=== PATIENT | female | born 1985 | race Caucasian/White ===

== ENCOUNTER 2016-06-24 10:51 | Day surgery (SDC) | payer OTHER ==
[~2016-06-24] VITALS: Ht 157.5 cm; Wt 77.0 kg
[~2016-06-24 10:51] MED LIST: AMPH20CA5 PO; HYDR-4003 PO; HYDR25TA4 PO; LISI40TA PO; OXYC5TAB72 PO; POLY17PO6 PO; SERT50TA9 PO; Sodium Chloride LOK Flush 10 mL Syringe IV PRN; fentaNYL-PF 50 mCg/mL 2 mL Inj IVPUSH PRN
[2016-06-24 12:17] VITALS: BP 133/89; PULSE 65; RESP 16; O2SAT 99
[2016-06-24] MEDS: 0.9% Sodium Chloride 1,000 ML IV SCH ×2 (12:41→12:53)
--- NOTE | 2016-06-24 13:06 | PCM.ENDCOL ---
Colonoscopy Date of Service: Jun 24, 2016 Physician Steve Cisneros MD Indication for Procedure Diarrhea Post Procedure Dx & Findings: Polyp diverticuli hemorrhoids. Procedure Colonoscopy Prep adequate Withdrawal 12 minutes PROCEDURE IN DETAIL: After unremarkable rectal examination Olympus video colonoscope was inserted into patient's anal canal and advanced to the cecum. Landmarks were identified including ileocecal valve and appendiceal orifice. Scope further advanced to terminal ileum. We advanced 5 cm. Terminal ileum show normal villous structures without any ulcers mass or erosions. The mucosa of the cecum, ascending, transverse, descending, sigmoid, rectal mucosa lined with whitish, pink, smooth, glistening, normal-appearing mucosa, normal fine branching, underlying vascularity, normal haustra. The patient tolerated procedure and was transported to observation area. In the transverse colon, there was a 1 mm polyp which was resected completely using cold forceps. In the sigmoid colon there are a few 1 mm diverticuli. In the rectum retroflexion was done which showed mild hemorrhoids. Anal canal was inspected carefully and without a mild hemorrhoids noted. Random biopsy obtained for workup of diarrhea from cecum to the rectum. Impression Normal TI Normal colon Polyp 1 status post complete removal Random biopsies Diverticuli Hemorrhoids Recommendation Repeat colonoscopy in 5 years. Follow-up in GI clinic with PA. Presedation Assessment Risks and Benefits Informed consent was obtained from the patient after all risks and benefits including but not limited to drug reaction, infection, pain, bleeding, perforation, as well as alternatives were discussed. Patient monitoring Continuous pulse oximetry, cardiac monitoring, blood pressure monitoring, IV access, and oxygen at 2L per nasal cannula. Periprocedural Fentanyl: Fentanyl 100mcg Incrementally Midazolam: Midazolam 4mg Incrementally Complications There were no periprocedural complications identified. Post Procedure Plan Post Procedure Recommendations 1. Restrict activities today. 2. Resume normal activities in the morning. 3. Resume medications. 4. Patient informed of normal post procedure side effects as bloating, drowsiness, blood streaking in the stool. 5. average risk CRCS. If colon polyps come back as: -Hyperplastic- can repeat colonoscopy in 10 years -Tubular adenoma- repeat colonoscopy in 5 years -Tubulovillous/villous adenoma- repeat colonoscopy in 3 years -If any dysplasia- return to clinic as soon as possible 6. Please don't hesitate to call me with any questions. Steve Cisneros MD Jun 24, 2016 13:06
[2016-06-24 13:07] VITALS: BP 118/76; PULSE 69; RESP 16; O2SAT 100
[2016-06-24 13:17] VITALS: BP 116/72; PULSE 69; RESP 16; O2SAT 100
[2016-06-24 13:27] VITALS: BP 113/73; PULSE 63; RESP 16; O2SAT 100
[2016-06-24 13:35] VITALS: BP 114/73; PULSE 79; RESP 16; O2SAT 100
--- NOTE | 2016-06-26 10:49 | PATH ---
SURGICAL PATHOLOGY Attending Physician:Steve Cisneros M.D. CASE STATUS: Signed Out PATIENT NAME: ARVIND BURGESS PID: [id number] : 1985 DATE COLLECTED:06/24/2016 20:08 SPECIMEN: 1: Colon, Biopsy 2: Colon, Biopsy CLINICAL HISTORY: DIARRHEA 1). RANDOM COLON BIOPSY 2). TRANSVERSE COLON POLYP FINAL DIAGNOSIS: 1. Random Colon Biopsies: Fragments of normal appearing colon mucosa. Negative for significant architectural distortion. Negative for significant inflammation, dysplasia and malignancy. 2. Transverse Colon Polyp: Small hyperplastic polyp. ICD10 K63.5 GROSS DESCRIPTION: The specimen is received in two formalin filled containers labeled with the patient's name. 1). The specimen is sublabeled "random colon" and consists of multiple portions of tissue which aggregate to 0.6 x 0.6 x 0.3 CM. The specimen is entirely submitted in cassette 1A. 2). The specimen is sublabeled "transverse colon polyp" and consists of a 0.4 x 0.3 x 0.2 CM portion of tissue which is entirely submitted in cassette 2A. 06/24/2016 [facility] ICD-9 CODES: CPT CODES: 1: 25402 2: 93556 Electronically Signed Out Dm Rodriguez MD [facility] Pathology [facility] [address], [place] [address] Technical component performed at [facility], [facility] [address], [place], [address]
== END 2016-06-24 23:59 | disposition home or self-care (01) ==
LOC: END 10:51
PROVIDERS: ATTEND Internal Medicine
DX: K63.5 Polyp of colon (principal); K64.9 Unspecified hemorrhoids; K52.9 Noninfective gastroenteritis and colitis, unspecified; K57.30 Diverticulosis of large intestine without perforation or abscess without bleeding
CPT/HCPCS: 45380; 88305; 99153; G0500; J2250; J3010; J7030